=== PATIENT | female | born 1935 | race Caucasian/White ===

== ENCOUNTER 2021-03-27 08:14 | Emergency (ER) | payer MEDICARE, OTHER ==
[2021-03-27] MEDS ORDERED: Diltiazem 25 MG/5 ML SDV IVPUSH ONE ×2 (08:26→08:36)
[2021-03-27] MEDS ORDERED: Sodium Chloride 0.9% 10 ML Syringe FLUSH PRN ×2 (08:26→08:37)
--- NOTE | 2021-03-27 09:30 | EDM.PDOC ---
ED HPI GENERAL MEDICAL PROBLEM - General Stated Complaint: Palpitations Time Seen by Provider: 03/27/21 08:20 Source of Information: Reports: Patient History Limitations: Reports: No Limitations - History of Present Illness INITIAL COMMENTS - FREE TEXT/NARRATIVE: Patient presented to the ED because of palpitations which woke her up from her sleep at 0300. There is no dizziness, chest pain,m dyspnea, nausea or vomiting. She has a history of AFIB treated with coreg and anticoagulated with eliquis. ED ROS GENERAL - Review of Systems Review Of Systems: See Below Constitutional: Reports: No Symptoms HEENT: Reports: No Symptoms Respiratory: Reports: No Symptoms Cardiovascular: Reports: No Symptoms Endocrine: Reports: No Symptoms GI/Abdominal: Reports: No Symptoms : Reports: No Symptoms Musculoskeletal: Reports: No Symptoms Skin: Reports: No Symptoms Neurological: Reports: No Symptoms ED EXAM, GENERAL - Physical Exam Exam: See Below Exam Limited By: No Limitations General Appearance: Alert, No Apparent Distress Eye Exam: Bilateral Eye: PERRL Ears: Normal External Exam, Normal Canal Nose: Normal Inspection, Normal Mucosa, No Blood Throat/Mouth: Normal Inspection, Normal Lips, Normal Teeth, Normal Gums, Normal Oropharynx, Normal Voice Head: Atraumatic, Normocephalic Neck: Normal Inspection, Supple, Non-Tender Respiratory/Chest: No Respiratory Distress, Lungs Clear, Normal Breath Sounds, No Accessory Muscle Use, Chest Non-Tender Cardiovascular: Normal Peripheral Pulses, No Edema, No Gallop, No JVD, No Rub, Tachycardia GI/Abdominal: Normal Bowel Sounds, Soft, Non-Tender Back Exam: Normal Inspection, Full Range of Motion Extremities: Normal Inspection, Normal Range of Motion, Non-Tender, No Pedal Edema, Normal Capillary Refill Neurological: Alert, Oriented, CN II-XII Intact, Normal Cognition, Normal Gait #1 Interpretation EKG Date: 03/27/21 Time: 08:11 Rhythm: Other (junctional rhythm) Rate (Beats/Min): 126 [place]: Normal P-Wave: Present QRS: Normal ST-T: Normal QT: Normal Comparison: No Change EKG Interpretation Comments: Junctional Tachy Course - Vital Signs Text/Narrative:: Lab/EKG result was reviewed and discussed with patient Her HR was down to 69 and is asymptomatic prior to discharge - Orders/Labs/Meds Orders: Active Orders 24 hr Category Date Time Status EKG Documentation Completion [RC] ASDIRECTED Care 03/27/21 08:27 Active Sodium Chloride 0.9% [Saline Flush] Med 03/27/21 08:26 Active 10 ml FLUSH ASDIRECTED PRN Sodium Chloride 0.9% [Saline Flush] Med 03/27/21 08:37 Active 10 ml FLUSH ASDIRECTED PRN Saline Lock Insert [OM.PC] Routine Oth 03/27/21 08:26 Ordered Saline Lock Insert [OM.PC] Routine Oth 03/27/21 08:37 Ordered EKG 12 Lead [EK] Routine Ther 03/27/21 08:26 Ordered Medication Orders Sodium Chloride (Sodium Chloride 0.9% 10 Ml Syringe) 10 ml FLUSH ASDIRECTED PRN PRN Reason: Keep Vein Open Sodium Chloride (Sodium Chloride 0.9% 10 Ml Syringe) 10 ml FLUSH ASDIRECTED PRN PRN Reason: Keep Vein Open Labs: Laboratory Tests 03/27/21 03/27/21 03/27/21 Range/Units 08:50 08:50 08:50 WBC 6.6 (3.0-10.3) x10-3/uL RBC 5.19 (3.60-5.20) x10(6)uL Hgb 14.0 (11.4-15.5) g/dL Hct 44.3 (34.2-48.2) % MCV 85.4 (76.7-100.5) fL MCH 27.1 (23.9-33.9) pg MCHC 31.7 L (31.9-34.8) g/dL RDW 15.4 (12.3-16.5) % Plt Count 237 (151-488) x10(3)uL MPV 7.9 (7.1-12.4) fL Neut % (Auto) 72.7 (30.8-76.2) % Lymph % (Auto) 18.2 L (18.4-52.1) % [place] % (Auto) 6.0 (4.4-15.7) % Eos % (Auto) 2.2 (0.6-8.1) % Baso % (Auto) 0.9 (0.2-1.5) % Neut # (Auto) 4.8 (1.5-6.3) x10-3/uL Lymph # (Auto) 1.2 (1.0-4.4) x10-3/uL [place] # (Auto) 0.4 (0.3-1.0) x10-3/uL Eos # (Auto) 0.1 (0.0-0.8) x10-3/uL Baso # (Auto) 0.1 (0.0-0.1) x10-3/uL Sodium 145 (135-145) mmol/L Potassium 4.2 (3.5-5.3) mmol/L Chloride 107 (100-110) mmol/L Carbon Dioxide 30 (21-32) mmol/L BUN 12 (7-18) mg/dL Creatinine 0.9 (0.55-1.02) mg/dL Est Cr Clr Drug Dosing TNP Estimated GFR (MDRD) 59 L (>60) BUN/Creatinine Ratio 13.3 (9-20) Glucose 155 H (80-116) mg/dL Calcium 9.1 (8.6-10.2) mg/dL Total Bilirubin 0.8 (0.1-1.3) mg/dL AST 18 (5-25) IU/L ALT 21 (12-36) U/L Alkaline Phosphatase 142 H (56-112) IU/L Troponin I 14.2 (4.0-60.3) pg/mL Total Protein 6.3 (6.0-8.0) g/dL Albumin 3.4 (3.2-4.6) g/dL Globulin 2.9 g/dL Albumin/Globulin Ratio 1.2 Meds: Medications Generic Name Dose Route Start Last Admin Trade Name Freq PRN Reason Stop Dose Admin Sodium Chloride 10 ml 03/27/21 08:26 Sodium Chloride 0.9% 10 Ml Syringe FLUSH ASDIRECTED PRN Keep Vein Open Sodium Chloride 10 ml 03/27/21 08:37 Sodium Chloride 0.9% 10 Ml Syringe FLUSH ASDIRECTED PRN Keep Vein Open Discontinued Medications Generic Name Dose Route Start Last Admin Trade Name Freq PRN Reason Stop Dose Admin Diltiazem HCl 25 mg 03/27/21 08:26 Diltiazem 25 Mg/5 Ml Sdv IVPUSH 03/27/21 08:27 ONETIME ONE Diltiazem HCl 15 mg 03/27/21 08:36 Diltiazem 25 Mg/5 Ml Sdv IVPUSH 03/27/21 08:37 ONETIME ONE Departure - Departure Time of Disposition: 09:35 Disposition: Home, Self-Care 01 Condition: Good Clinical Impression: Palpitations Instructions: Palpitations, [id number], Atrial Fibrillation, [id number] Referrals: PCP,Not In Area [Primary Care Provider] - Additional Instructions: Please read discharge instructions on palpitations Continue you present medications Follow up as needed - My Orders Last 24 Hours: My Active Orders 03/27/21 08:26 Sodium Chloride 0.9% [Saline Flush] 10 ml FLUSH ASDIRECTED PRN Saline Lock Insert [OM.PC] Routine EKG 12 Lead [EK] Routine 03/27/21 08:27 EKG Documentation Completion [RC] ASDIRECTED 03/27/21 08:37 Sodium Chloride 0.9% [Saline Flush] 10 ml FLUSH ASDIRECTED PRN Saline Lock Insert [OM.PC] Routine - Assessment/Plan Last 24 Hours: My Active Orders 03/27/21 08:26 Sodium Chloride 0.9% [Saline Flush] 10 ml FLUSH ASDIRECTED PRN Saline Lock Insert [OM.PC] Routine EKG 12 Lead [EK] Routine 03/27/21 08:27 EKG Documentation Completion [RC] ASDIRECTED 03/27/21 08:37 Sodium Chloride 0.9% [Saline Flush] 10 ml FLUSH ASDIRECTED PRN Saline Lock Insert [OM.PC] Routine
== END 2021-03-27 09:58 | disposition home or self-care (01) ==
LOC: FB.ED 08:14
DX: R00.2 Palpitations (principal)
CPT/HCPCS: 36415; 80053; 84484; 85025; 93005; 99285-25

== ENCOUNTER 2021-05-12 09:25 | Emergency (ER) | payer MEDICARE, OTHER ==
[2021-05-12] MEDS ORDERED: Diltiazem 25 MG/5 ML SDV IVPUSH STA (10:00)
--- NOTE | 2021-05-12 10:38 | EDM.PDOC ---
ED HPI GENERAL MEDICAL PROBLEM - General Chief Complaint: Cardiovascular Problem Stated Complaint: ELAVATED HEART RATE Time Seen by Provider: 05/12/21 09:45 Source of Information: Reports: Patient History Limitations: Reports: No Limitations - History of Present Illness INITIAL COMMENTS - FREE TEXT/NARRATIVE: Patient presented to the ED because of palpitations for 3 days. There is no chest pain, dyspnea, dizziness. There is no N/V. She had a history of tachycardia and is taking coreg 6.25 twice daily. - Related Data Allergies Allergy/AdvReac Type Severity Reaction Status Date / Time No Known Allergies Allergy Verified 03/27/21 11:27 Home Meds: Home Meds Apixaban [Eliquis] 5 mg PO BID 03/27/21 [History] Furosemide [Lasix] 20 mg PO BID@08,12 03/27/21 [History] Gabapentin [Neurontin] 300 mg PO TID 03/27/21 [History] Iron Polysaccharide Complex [Iferex 150] 150 mg PO BIDMEALS 03/27/21 [History] Omeprazole 40 mg PO ACLUNCH 03/27/21 [History] Potassium Chloride 20 meq PO DAILY 03/27/21 [History] Sertraline [Zoloft] 100 mg PO QPM 03/27/21 [History] atorvaSTATin Calcium [Lipitor] 40 mg PO BEDTIME 03/27/21 [History] carvediloL [Coreg] 6.25 mg PO BIDMEALS 03/27/21 [History] Levothyroxine 75 mcg PO DAILY 05/12/21 [History] Past Medical History Cardiovascular History: Reports: Afib, Heart Failure Social & Family History - Family History Family Medical History: No Pertinent Family History - Tobacco Use Tobacco Use Status *Q: Never Tobacco User - Caffeine Use Caffeine Use: Reports: Soda - Recreational Drug Use Recreational Drug Use: No ED ROS GENERAL - Review of Systems Review Of Systems: See Below Constitutional: Reports: No Symptoms HEENT: Reports: No Symptoms Respiratory: Reports: No Symptoms Cardiovascular: Reports: Palpitations Endocrine: Reports: No Symptoms GI/Abdominal: Reports: No Symptoms : Reports: No Symptoms Musculoskeletal: Reports: No Symptoms Skin: Reports: No Symptoms Neurological: Reports: No Symptoms ED EXAM, GENERAL - Physical Exam Exam: See Below Exam Limited By: No Limitations General Appearance: Alert, No Apparent Distress Eye Exam: Bilateral Eye: PERRL Ears: Normal External Exam, Normal Canal, Normal TMs Nose: Normal Inspection, Normal Mucosa, No Blood Throat/Mouth: Normal Inspection, Normal Lips, Normal Teeth, Normal Gums, Normal Oropharynx, Normal Voice Head: Atraumatic, Normocephalic Neck: Normal Inspection, Supple, Non-Tender, Full Range of Motion Respiratory/Chest: No Respiratory Distress, Lungs Clear, Normal Breath Sounds, No Accessory Muscle Use, Chest Non-Tender Cardiovascular: Normal Peripheral Pulses, No Edema, No Gallop, No JVD, No Murmur, No Rub, Tachycardia GI/Abdominal: Normal Bowel Sounds, Soft, Non-Tender, No Organomegaly, No Distention, No Abnormal Bruit, No Mass Back Exam: Normal Inspection, Full Range of Motion Extremities: Normal Inspection, Normal Range of Motion, Non-Tender, No Pedal Edema, Normal Capillary Refill #1 Interpretation EKG Date: 05/12/21 Time: 09:33 Rhythm: Other (Junctional Tach) Rate (Beats/Min): 137 [place]: Normal P-Wave: Present QRS: Normal ST-T: Normal QT: Normal Comparison: No Change EKG Interpretation Comments: Junctional Tach Course - Vital Signs Text/Narrative:: Lab/EKG result was reviewed and discussed with patient Last Recorded V/S: Last Vital Signs Temp 36.4 C 05/12/21 09:26 Pulse 144 H 05/12/21 09:26 Resp 18 05/12/21 09:26 BP 147/101 H 05/12/21 09:26 Pulse Ox 95 05/12/21 09:26 - Orders/Labs/Meds Orders: Active Orders 24 hr Category Date Time Status EKG 12 Lead [EK] Routine Ther 05/12/21 10:00 Ordered Labs: Laboratory Tests 05/12/21 05/12/21 05/12/21 Range/Units 10:16 10:16 10:16 WBC 6.4 (3.0-10.3) x10-3/uL RBC 5.47 H (3.60-5.20) x10(6)uL Hgb 14.6 (11.4-15.5) g/dL Hct 45.1 (34.2-48.2) % MCV 82.4 (76.7-100.5) fL MCH 26.7 (23.9-33.9) pg MCHC 32.4 (31.9-34.8) g/dL RDW 15.6 (12.3-16.5) % Plt Count 191 (151-488) x10(3)uL MPV 8.1 (7.1-12.4) fL Neut % (Auto) 69.2 (30.8-76.2) % Lymph % (Auto) 22.5 (18.4-52.1) % [place] % (Auto) 5.8 (4.4-15.7) % Eos % (Auto) 1.8 (0.6-8.1) % Baso % (Auto) 0.7 (0.2-1.5) % Neut # (Auto) 4.4 (1.5-6.3) x10-3/uL Lymph # (Auto) 1.4 (1.0-4.4) x10-3/uL [place] # (Auto) 0.4 (0.3-1.0) x10-3/uL Eos # (Auto) 0.1 (0.0-0.8) x10-3/uL Baso # (Auto) 0.0 (0.0-0.1) x10-3/uL Sodium 142 (135-145) mmol/L Potassium 4.0 (3.5-5.3) mmol/L Chloride 105 (100-110) mmol/L Carbon Dioxide 28 (21-32) mmol/L BUN 12 (7-18) mg/dL Creatinine 1.0 (0.55-1.02) mg/dL Est Cr Clr Drug Dosing 30.47 mL/min Estimated GFR (MDRD) 53 L (>60) BUN/Creatinine Ratio 12.0 (9-20) Glucose 141 H (80-116) mg/dL Calcium 8.7 (8.6-10.2) mg/dL Total Bilirubin 0.7 (0.1-1.3) mg/dL AST 30 H D (5-25) IU/L ALT 27 D (12-36) U/L Alkaline Phosphatase 134 H (56-112) IU/L Troponin I 10.0 (4.0-60.3) pg/mL Total Protein 6.6 (6.0-8.0) g/dL Albumin 3.7 (3.2-4.6) g/dL Globulin 2.9 g/dL Albumin/Globulin Ratio 1.3 Meds: Medications Discontinued Medications Generic Name Dose Route Start Last Admin Trade Name Tim PRN Reason Stop Dose Admin Diltiazem HCl 15 mg 05/12/21 10:00 Diltiazem 25 Mg/5 Ml Sdv IVPUSH 05/12/21 10:01 NOW STA Departure - Departure Time of Disposition: 10:50 Disposition: Home, Self-Care 01 Condition: Good Clinical Impression: Palpitations Instructions: Palpitations, [id number] Referrals: PCP,None [Ordering Only Provider] - Forms: ED Department Discharge Additional Instructions: Please read discharge instructions on palpitations Take an extra dose of coreg/carvedilol if your hear rate is more than 100beats/min Keep your appointment to see your doctor today Sepsis Event Note (ED) - Evaluation Sepsis Screening Result: No Definite Risk - Focused Exam Vital Signs: Vital Signs Temp Pulse Resp BP Pulse Ox 05/12/21 09:26 36.4 C 144 H 18 147/101 H 95 - My Orders Last 24 Hours: My Active Orders 05/12/21 10:00 EKG 12 Lead [EK] Routine - Assessment/Plan Last 24 Hours: My Active Orders 05/12/21 10:00 EKG 12 Lead [EK] Routine
== END 2021-05-12 11:03 | disposition home or self-care (01) ==
LOC: FB.ED 09:25
DX: R00.2 Palpitations (principal); R00.0 Tachycardia, unspecified; I48.91 Unspecified atrial fibrillation; I50.9 Heart failure, unspecified; Z79.01 Long term (current) use of anticoagulants; Z79.899 Other long term (current) drug therapy
CPT/HCPCS: 36415; 80053; 84484; 85025; 93005; 99285-25

== ENCOUNTER 2022-01-06 12:52 | Emergency (ER) | payer MEDICARE, OTHER ==
[2022-01-06 13:18] LABS: ESTIMATED GFR 55 mL/min (>60)
[2022-01-06] MEDS ORDERED: Sodium Chloride 0.9% 10 ML Syringe FLUSH PRN (14:05)
[2022-01-06] MEDS ORDERED: Nitroglycerin 0.4 MG Tab.SL SL ONE ×2 (14:05→14:27)
== END 2022-01-06 14:50 | disposition home or self-care (01) ==
LOC: FB.ED 12:52
DX: R07.9 Chest pain, unspecified (principal); I11.0 Hypertensive heart disease with heart failure; I50.9 Heart failure, unspecified; E66.9 Obesity, unspecified; Z68.32 Body mass index [BMI] 32.0-32.9, adult; Z91.013 Allergy to seafood; Z79.899 Other long term (current) drug therapy; Z79.01 Long term (current) use of anticoagulants; Z90.710 Acquired absence of both cervix and uterus
CPT/HCPCS: 36415; 80053; 83880; 84484; 85025; 93005; 99285; A9270

== ENCOUNTER 2022-03-22 18:15 | Emergency (ER) | payer MEDICARE, OTHER | END 2022-03-22 20:49 | disposition home or self-care (01) | LOC: FB.ED 18:15 | DX: R42 Dizziness and giddiness (principal); I11.0 Hypertensive heart disease with heart failure; I50.9 Heart failure, unspecified; R26.81 Unsteadiness on feet; E03.9 Hypothyroidism, unspecified; E66.9 Obesity, unspecified; Z68.33 Body mass index [BMI] 33.0-33.9, adult; Z91.013 Allergy to seafood; Z79.01 Long term (current) use of anticoagulants; Z90.710 Acquired absence of both cervix and uterus; Z79.899 Other long term (current) drug therapy; W01.10XA Fall on same level from slipping, tripping and stumbling with subsequent striking against unspecified object, initial encounter | CPT/HCPCS: 70450; 81001; 99284 ==

== ENCOUNTER 2022-07-07 15:28 | Emergency (ER) | payer MEDICARE, OTHER | END 2022-07-07 16:22 | disposition home or self-care (01) | LOC: FB.ED 15:28 | DX: N39.0 Urinary tract infection, site not specified (principal); I11.0 Hypertensive heart disease with heart failure; I50.9 Heart failure, unspecified; E78.00 Pure hypercholesterolemia, unspecified; E66.9 Obesity, unspecified; Z68.34 Body mass index [BMI] 34.0-34.9, adult; Z91.013 Allergy to seafood; Z79.01 Long term (current) use of anticoagulants; Z79.899 Other long term (current) drug therapy | CPT/HCPCS: 81001; 87086; 87088; 87186; 99283 ==

== ENCOUNTER 2022-07-24 15:52 | Emergency (ER) | payer MEDICARE, OTHER, MEDICAID ==
[2022-07-24] MEDS ORDERED: Sodium Chloride 0.9% 10 ML Syringe FLUSH PRN (16:26)
[2022-07-24] MEDS ORDERED: Ertapenem 1 GM in Sodium Chloride 0.9% 50 ML IV SCH (16:45)
[2022-07-24 16:57] LABS: ESTIMATED GFR 55 mL/min (>60)
[2022-07-24] MEDS ORDERED: Phenazopyridine 95 MG Tab PO STA ×2 (17:23→17:39)
== END 2022-07-24 18:00 | disposition home or self-care (01) ==
LOC: FB.ED 15:52
DX: N39.0 Urinary tract infection, site not specified (principal); K21.9 Gastro-esophageal reflux disease without esophagitis; I11.0 Hypertensive heart disease with heart failure; I50.9 Heart failure, unspecified; E78.00 Pure hypercholesterolemia, unspecified; E03.9 Hypothyroidism, unspecified; E66.9 Obesity, unspecified; Z68.30 Body mass index [BMI] 30.0-30.9, adult; Z91.013 Allergy to seafood; Z88.1 Allergy status to other antibiotic agents; Z79.01 Long term (current) use of anticoagulants; Z79.899 Other long term (current) drug therapy
CPT/HCPCS: 36415; 80053; 83605; 85025; 86140; 87040; 96365; 99283; 99283-25; A9270-GY; J1335; J3490

== ENCOUNTER 2022-10-27 15:10 | Inpatient (IN) | payer MEDICARE, OTHER ==
[2022-10-27] MEDS ORDERED: cefTRIAXone 2 GM Vial IVPUSH ONE (16:59)
[2022-10-27 17:17] LABS: BASOPHILS PERCENT AUTO 0.5 % (0.2-1.5); EOSINOPHILS ABSOLUTE AUTO 0.1 x10-3/uL (0.0-0.8); EOSINOPHILS PERCENT AUTO 1.8 % (0.6-8.1); HEMATOCRIT 39.1 % (34.2-48.2); HEMOGLOBIN 12.5 g/dL (11.4-15.5); LYMPHOCYTES ABSOLUTE AUTO 1.7 x10-3/uL (1.0-4.4); LYMPHOCYTES PERCENT AUTO 27.8 % (18.4-52.1); MEAN CORPUSCULAR HEMOGLOBIN 26.2 pg (23.9-33.9); MEAN CORPUSCULAR VOLUME 81.9 fL (76.7-100.5); MEAN PLATELET VOLUME 8.3 fL (7.1-12.4); MONOCYTES ABSOLUTE AUTO 0.5 x10-3/uL (0.3-1.0); MONOCYTES PERCENT AUTO 7.6 % (4.4-15.7); NEUTROPHILS ABSOLUTE AUTO 3.9 x10-3/uL (1.5-6.3); NEUTROPHILS PERCENT AUTO 62.3 % (30.8-76.2); PLATELET COUNT,PLT 196 x10(3)uL (151-488); RED BLOOD CELL COUNT 4.77 x10(6)uL (3.60-5.20); RED CELL DISTRIBUTION WIDTH 15.6 % (12.3-16.5); WHITE BLOOD CELL COUNT,WBC 6.2 x10-3/uL (3.0-10.3)
[2022-10-27 17:24] LABS: BLOOD UREA NITROGEN,BUN 19 mg/dL (7-18); BUN/CREATININE RATIO 21.1 (9-20); CALCIUM 9.7 mg/dL (8.6-10.2); CARBON DIOXIDE,CO2 30 mmol/L (21-32); CHLORIDE,CL 104 mmol/L (100-110); CREATININE 0.9 mg/dL (0.55-1.02); EST CRCL DRUG DOSING (CG) 31.63 mL/min; ESTIMATED GFR 62 mL/min (>60); GLUCOSE RANDOM 102 mg/dL (80-116); SODIUM,NA 142 mmol/L (135-145)
[2022-10-27 17:26] LABS: A/G RATIO 1.2; ALANINE AMINOTRANSFERASE,ALT 24 U/L (12-36); ALBUMIN 3.8 g/dL (3.2-4.6); ALKALINE PHOSPHATASE 111 IU/L (56-112); ASPARTATE AMNIOTRANSFERASE,AST 22 IU/L (5-25); BILIRUBIN TOTAL 0.6 mg/dL (0.1-1.3); PROTEIN TOTAL,TP 6.9 g/dL (6.0-8.0)
[2022-10-27] MEDS: Sodium Chloride 0.9% 10 ML Syringe FLUSH PRN ×4 (17:29→18:43)
[2022-10-27 17:30] LABS: LACTIC ACID 0.7 mmol/L (0.4-2.0)
[2022-10-27] MEDS: Azithromycin 500 MG in Sodium Chloride 0.9% 250 ML IV SCH (17:35)
[2022-10-27] MEDS ORDERED: Magnesium Hydroxide 400 MG/5 ML Susp 30 ML Cup PO PRN (18:29)
[2022-10-27] MEDS ORDERED: Loperamide 2 MG Cap PO PRN (18:29)
[2022-10-27] MEDS ORDERED: Nitroglycerin 0.4 MG Tab.SL SL PRN (18:29)
[2022-10-27] MEDS ORDERED: Acetaminophen 500 MG Tab PO PRN ×2 (18:29)
[2022-10-27] MEDS ORDERED: LORazepam 0.5 MG Tab PO PRN (18:29)
[2022-10-27] MEDS ORDERED: guaiFENesin 100 MG/5 ML Soln 5 ML UD Cup PO PRN (18:29)
[2022-10-27] MEDS ORDERED: LANOLIN TOP PRN (18:29)
[2022-10-27] MEDS: atorvaSTATin 40 MG Tab PO SCH (20:15)
[2022-10-27] MEDS: Codeine/guaiFENesin 10-100 MG/5 ML Syrup 5 ML Cup PO PRN (20:15)
[2022-10-27] MEDS: Donepezil 10 MG Tab PO SCH (20:15)
[2022-10-27] MEDS: Benzonatate 100 MG Cap PO PRN (20:15)
[2022-10-27] MEDS ORDERED: Gabapentin 300 MG Cap ONE (20:33)
[2022-10-27] MEDS: Azelastine Nasal Soln 30 ML Spray Bottle NASBOTH SCH (21:12)
[2022-10-27] MEDS: Gabapentin 300 MG Cap PO SCH (21:14)
[2022-10-27] MEDS: Sertraline 100 MG Tab PO SCH (21:14)
[2022-10-28] MEDS: Codeine/guaiFENesin 10-100 MG/5 ML Syrup 5 ML Cup PO PRN (03:49)
[2022-10-28] MEDS: Levothyroxine 75 MCG Tab PO SCH (06:13)
[2022-10-28 07:02] LABS: BASOPHILS PERCENT AUTO 0.4 % (0.2-1.5); EOSINOPHILS ABSOLUTE AUTO 0.1 x10-3/uL (0.0-0.8); EOSINOPHILS PERCENT AUTO 1.5 % (0.6-8.1); HEMOGLOBIN 12.2 g/dL (11.4-15.5); LYMPHOCYTES ABSOLUTE AUTO 1.6 x10-3/uL (1.0-4.4); LYMPHOCYTES PERCENT AUTO 25.1 % (18.4-52.1); MEAN CORPUSCULAR HEMOGLOBIN 26.8 pg (23.9-33.9); MEAN CORPUSCULAR VOLUME 81.2 fL (76.7-100.5); MEAN PLATELET VOLUME 8.3 fL (7.1-12.4); MONOCYTES ABSOLUTE AUTO 0.5 x10-3/uL (0.3-1.0); MONOCYTES PERCENT AUTO 7.7 % (4.4-15.7); NEUTROPHILS ABSOLUTE AUTO 4.2 x10-3/uL (1.5-6.3); NEUTROPHILS PERCENT AUTO 65.3 % (30.8-76.2); PLATELET COUNT,PLT 194 x10(3)uL (151-488); RED BLOOD CELL COUNT 4.56 x10(6)uL (3.60-5.20); RED CELL DISTRIBUTION WIDTH 15.8 % (12.3-16.5); WHITE BLOOD CELL COUNT,WBC 6.4 x10-3/uL (3.0-10.3)
[2022-10-28 07:11] LABS: BLOOD UREA NITROGEN,BUN 14 mg/dL (7-18); BUN/CREATININE RATIO 15.6 (9-20); CALCIUM 9.2 mg/dL (8.6-10.2); CARBON DIOXIDE,CO2 29 mmol/L (21-32); CHLORIDE,CL 105 mmol/L (100-110); CREATININE 0.9 mg/dL (0.55-1.02); EST CRCL DRUG DOSING (CG) 31.63 mL/min; ESTIMATED GFR 62 mL/min (>60); GLUCOSE RANDOM 98 mg/dL (80-116); POTASSIUM,K 4.1 mmol/L (3.5-5.3); SODIUM,NA 142 mmol/L (135-145)
[2022-10-28] MEDS ORDERED: Aluminum Hydroxide/Magnesium Hydroxide Susp 30 ML Cup PO PRN (07:38)
[2022-10-28] MEDS: Azelastine Nasal Soln 30 ML Spray Bottle NASBOTH SCH ×2 (08:24→21:21)
[2022-10-28] MEDS: Gabapentin 300 MG Cap PO SCH ×3 (08:24→20:59)
[2022-10-28] MEDS: Benzonatate 100 MG Cap PO PRN ×2 (08:24→13:11)
[2022-10-28] MEDS: Diltiazem 120 MG Cap.CD PO SCH (08:39)
[2022-10-28] MEDS: Fluticasone NASAL Spray 16 GM Bottle NASBOTH SCH (08:40)
[2022-10-28] MEDS: Biotin 5 MG Cap PO SCH (08:40)
[2022-10-28] MEDS: Iron Polysaccharides Complex 150 MG Cap PO SCH ×2 (08:40→17:45)
[2022-10-28] MEDS: Carvedilol 6.25 MG Tab PO SCH ×2 (08:40→17:52)
[2022-10-28] MEDS: Furosemide 20 MG Tab PO SCH ×2 (08:40→12:29)
[2022-10-28] MEDS ORDERED: Lactobacillus Rhamnosus GG (Probiotic) Cap PO SCH (10:00)
[2022-10-28] MEDS: Multivitamins with Iron/Calcium/Folic Acid/Minerals Tab PO SCH (10:22)
[2022-10-28] MEDS: Saccharomyces Boulardii (Probiotic) 250 MG Cap PO SCH (10:23)
[2022-10-28] MEDS ORDERED: Pantoprazole 40 MG Tab.CR PO SCH (12:00)
[2022-10-28] MEDS ORDERED: Cholecalciferol (Vitamin D3) 25 MCG Tab PO SCH (12:00)
[2022-10-28] MEDS ORDERED: Potassium Chloride 20 MEQ Tab.ER PO SCH (12:00)
[2022-10-28] MEDS ORDERED: cefTRIAXone 1 GM Vial IVPUSH SCH (17:00)
[2022-10-28] MEDS: Azithromycin 500 MG in Sodium Chloride 0.9% 250 ML IV SCH (17:03)
[2022-10-28] MEDS: Sodium Chloride 0.9% 10 ML Syringe FLUSH PRN ×2 (17:03→18:35)
[2022-10-28] MEDS ORDERED: Rivaroxaban 15 MG Tab PO SCH (18:00)
[2022-10-28] MEDS ORDERED: Cetirizine 10 MG Tab PO SCH (21:00)
[2022-10-28] MEDS: Donepezil 10 MG Tab PO SCH (21:19)
[2022-10-28] MEDS: atorvaSTATin 40 MG Tab PO SCH (21:22)
[2022-10-28] MEDS: Sertraline 100 MG Tab PO SCH (21:23)
[2022-10-29] MEDS: Levothyroxine 75 MCG Tab PO SCH (05:59)
[2022-10-29 06:46] LABS: BASOPHILS PERCENT AUTO 0.3 % (0.2-1.5); EOSINOPHILS ABSOLUTE AUTO 0.1 x10-3/uL (0.0-0.8); EOSINOPHILS PERCENT AUTO 1.8 % (0.6-8.1); HEMATOCRIT 38.3 % (34.2-48.2); HEMOGLOBIN 12.4 g/dL (11.4-15.5); LYMPHOCYTES ABSOLUTE AUTO 1.7 x10-3/uL (1.0-4.4); LYMPHOCYTES PERCENT AUTO 26.2 % (18.4-52.1); MEAN CORPUSCULAR HEMOGLOBIN 26.4 pg (23.9-33.9); MEAN CORPUSCULAR HGB CONC 32.3 g/dL (31.9-34.8); MEAN CORPUSCULAR VOLUME 81.5 fL (76.7-100.5); MEAN PLATELET VOLUME 8.3 fL (7.1-12.4); MONOCYTES ABSOLUTE AUTO 0.5 x10-3/uL (0.3-1.0); MONOCYTES PERCENT AUTO 7.5 % (4.4-15.7); NEUTROPHILS PERCENT AUTO 64.2 % (30.8-76.2); PLATELET COUNT,PLT 207 x10(3)uL (151-488); RED CELL DISTRIBUTION WIDTH 15.2 % (12.3-16.5); WHITE BLOOD CELL COUNT,WBC 6.3 x10-3/uL (3.0-10.3)
[2022-10-29 06:49] LABS: BLOOD UREA NITROGEN,BUN 14 mg/dL (7-18); BUN/CREATININE RATIO 17.5 (9-20); CALCIUM 9.3 mg/dL (8.6-10.2); CARBON DIOXIDE,CO2 28 mmol/L (21-32); CHLORIDE,CL 105 mmol/L (100-110); CREATININE 0.8 mg/dL (0.55-1.02); EST CRCL DRUG DOSING (CG) 35.59 mL/min; ESTIMATED GFR 71 mL/min (>60); GLUCOSE RANDOM 103 mg/dL (80-116); POTASSIUM,K 3.9 mmol/L (3.5-5.3); SODIUM,NA 143 mmol/L (135-145)
[2022-10-29] MEDS: Carvedilol 6.25 MG Tab PO SCH (08:34)
[2022-10-29] MEDS: Iron Polysaccharides Complex 150 MG Cap PO SCH (08:34)
[2022-10-29] MEDS: Diltiazem 120 MG Cap.CD PO SCH (08:35)
[2022-10-29] MEDS: Fluticasone NASAL Spray 16 GM Bottle NASBOTH SCH (08:35)
[2022-10-29] MEDS: Furosemide 20 MG Tab PO SCH (08:35)
[2022-10-29] MEDS: Azelastine Nasal Soln 30 ML Spray Bottle NASBOTH SCH (08:35)
[2022-10-29] MEDS: Biotin 5 MG Cap PO SCH (08:36)
[2022-10-29] MEDS: Multivitamins with Iron/Calcium/Folic Acid/Minerals Tab PO SCH (08:36)
[2022-10-29] MEDS: Saccharomyces Boulardii (Probiotic) 250 MG Cap PO SCH (08:36)
[2022-10-29] MEDS: Gabapentin 300 MG Cap PO SCH (08:41)
== END 2022-10-29 10:15 | disposition home health service (06) | DRG 194 ==
LOC: FB.MS 15:10
PROVIDERS: ADMIT Student in an Organized Health Care Education/Training Program; ATTEND Family Medicine
DX: J18.9 Pneumonia, unspecified organism (principal); I50.32 Chronic diastolic (congestive) heart failure; J20.9 Acute bronchitis, unspecified; F32.A Depression, unspecified; F41.9 Anxiety disorder, unspecified; I48.91 Unspecified atrial fibrillation; E03.9 Hypothyroidism, unspecified; Z66 Do not resuscitate; Z20.822 Contact with and (suspected) exposure to COVID-19; K21.9 Gastro-esophageal reflux disease without esophagitis; H54.7 Unspecified visual loss; I11.0 Hypertensive heart disease with heart failure; D64.9 Anemia, unspecified; E78.00 Pure hypercholesterolemia, unspecified; Z96.653 Presence of artificial knee joint, bilateral; I48.0 Paroxysmal atrial fibrillation; E78.5 Hyperlipidemia, unspecified; Z91.013 Allergy to seafood; Z88.2 Allergy status to sulfonamides; Z79.899 Other long term (current) drug therapy; Z79.890 Hormone replacement therapy; Z86.73 Personal history of transient ischemic attack (TIA), and cerebral infarction without residual deficits; Z90.710 Acquired absence of both cervix and uterus; Z51.5 Encounter for palliative care
CPT/HCPCS: 36415; 71046; 80048; 80053; 83605; 83735; 85025; 86140; 87040; 94150; A9270-GY; J0456; J0696; J3490; J7050; U0002

== ENCOUNTER 2022-12-01 10:32 | Emergency (ER) | payer OTHER, MEDICAID ==
[2022-12-01 11:15] LABS: BASOPHILS PERCENT AUTO 0.5 % (0.2-1.5); EOSINOPHILS ABSOLUTE AUTO 0.1 x10-3/uL (0.0-0.8); EOSINOPHILS PERCENT AUTO 1.3 % (0.6-8.1); HEMATOCRIT 41.4 % (34.2-48.2); HEMOGLOBIN 13.6 g/dL (11.4-15.5); LYMPHOCYTES ABSOLUTE AUTO 1.6 x10-3/uL (1.0-4.4); LYMPHOCYTES PERCENT AUTO 30.3 % (18.4-52.1); MEAN CORPUSCULAR HEMOGLOBIN 26.8 pg (23.9-33.9); MEAN CORPUSCULAR HGB CONC 32.9 g/dL (31.9-34.8); MEAN CORPUSCULAR VOLUME 81.4 fL (76.7-100.5); MEAN PLATELET VOLUME 8.2 fL (7.1-12.4); MONOCYTES ABSOLUTE AUTO 0.4 x10-3/uL (0.3-1.0); MONOCYTES PERCENT AUTO 7.2 % (4.4-15.7); NEUTROPHILS ABSOLUTE AUTO 3.3 x10-3/uL (1.5-6.3); NEUTROPHILS PERCENT AUTO 60.7 % (30.8-76.2); PLATELET COUNT,PLT 216 x10(3)uL (151-488); RED BLOOD CELL COUNT 5.08 x10(6)uL (3.60-5.20); RED CELL DISTRIBUTION WIDTH 19.1 % (12.3-16.5); WHITE BLOOD CELL COUNT,WBC 5.4 x10-3/uL (3.0-10.3)
[2022-12-01 11:19] LABS: BLOOD UREA NITROGEN,BUN 15 mg/dL (7-18); BUN/CREATININE RATIO 18.8 (9-20); CALCIUM 9.2 mg/dL (8.6-10.2); CARBON DIOXIDE,CO2 30 mmol/L (21-32); CHLORIDE,CL 104 mmol/L (100-110); CREATININE 0.8 mg/dL (0.55-1.02); ESTIMATED GFR 71 mL/min (>60); GLUCOSE RANDOM 128 mg/dL (80-116); POTASSIUM,K 3.8 mmol/L (3.5-5.3); SODIUM,NA 142 mmol/L (135-145)
[2022-12-01] MEDS ORDERED: Aspirin 81 MG Tab.Chew PO ONE (11:24)
[2022-12-01] MEDS ORDERED: Nitroglycerin 0.4 MG Tab.SL SL PRN (11:24)
[2022-12-01 11:25] LABS: A/G RATIO 1.4; ALANINE AMINOTRANSFERASE,ALT 26 U/L (12-36); ALBUMIN 3.9 g/dL (3.2-4.6); ALKALINE PHOSPHATASE 89 IU/L (56-112); ASPARTATE AMNIOTRANSFERASE,AST 22 IU/L (5-25); BILIRUBIN TOTAL 0.6 mg/dL (0.1-1.3); PROTEIN TOTAL,TP 6.6 g/dL (6.0-8.0)
[2022-12-01 11:26] LABS: TROPONIN I 7.5 pg/mL (4.0-60.3)
[2022-12-01] MEDS ORDERED: Sodium Chloride 0.9% 10 ML Syringe FLUSH PRN (11:26)
[2022-12-01 11:30] LABS: C-REACTIVE PROTEIN < 0.2 mg/dL (0.5-0.9)
[2022-12-01 13:27] LABS: BILIRUBIN,URINE NEGATIVE (NEGATIVE); GLUCOSE,URINE NORMAL (NORMAL); KETONES,URINE NEGATIVE (NEGATIVE); LEUKOCYTE ESTERASE,URINE NEGATIVE (NEGATIVE); NITRITE,URINE NEGATIVE (NEGATIVE); OCCULT BLOOD,URINE NEGATIVE (NEGATIVE); PROTEIN,URINE NEGATIVE (NEGATIVE); UROBILINOGEN,URINE NORMAL (NEGATIVE)
[2022-12-01 13:32] LABS: APPEARANCE,URINE CLEAR (CLEAR); COLOR,URINE YELLOW (YELLOW)
[2022-12-01 13:33] LABS: BACTERIA,URINE RARE (NS); RBC,URINE 0-5 (0-5); SQUAMOUS EPITHELIAL CELLS,UR FEW (NS,R,O); WBC,URINE 0-5 (0-5)
== END 2022-12-01 15:00 | disposition home or self-care (01) ==
LOC: FB.ED 10:32
DX: I48.0 Paroxysmal atrial fibrillation (principal); I11.0 Hypertensive heart disease with heart failure; I50.9 Heart failure, unspecified; E78.00 Pure hypercholesterolemia, unspecified; K21.9 Gastro-esophageal reflux disease without esophagitis; M19.90 Unspecified osteoarthritis, unspecified site; E03.9 Hypothyroidism, unspecified; E66.9 Obesity, unspecified; Z91.013 Allergy to seafood; Z88.2 Allergy status to sulfonamides; Z79.899 Other long term (current) drug therapy; Z79.01 Long term (current) use of anticoagulants
CPT/HCPCS: 36415; 71046; 80053; 81001; 83735; 83880; 84484; 85025; 86140; 93005; 99285; A9270-GY; J3490

== ENCOUNTER 2023-07-17 07:46 | Emergency (ER) | payer MEDICARE, OTHER ==
[2023-07-17] MEDS ORDERED: Alum Hydroxide/Mag Hydroxide 15 ML, Lidocaine 2% 15 ML PO ONE ×2 (07:51)
[2023-07-17 08:10] LABS: BASOPHILS PERCENT AUTO 0.5 % (0.2-1.5); EOSINOPHILS ABSOLUTE AUTO 0.1 x10-3/uL (0.0-0.8); HEMATOCRIT 39.6 % (34.2-48.2); LYMPHOCYTES ABSOLUTE AUTO 1.7 x10-3/uL (1.0-4.4); MEAN CORPUSCULAR HEMOGLOBIN 27.6 pg (23.9-33.9); MEAN CORPUSCULAR HGB CONC 32.8 g/dL (31.9-34.8); MEAN CORPUSCULAR VOLUME 84.3 fL (76.7-100.5); MEAN PLATELET VOLUME 8.2 fL (7.1-12.4); MONOCYTES ABSOLUTE AUTO 0.4 x10-3/uL (0.3-1.0); MONOCYTES PERCENT AUTO 7.9 % (4.4-15.7); NEUTROPHILS ABSOLUTE AUTO 2.7 x10-3/uL (1.5-6.3); NEUTROPHILS PERCENT AUTO 54.6 % (30.8-76.2); PLATELET COUNT,PLT 179 x10(3)uL (151-488); RED BLOOD CELL COUNT 4.69 x10(6)uL (3.60-5.20); WHITE BLOOD CELL COUNT,WBC 4.9 x10-3/uL (3.0-10.3)
[2023-07-17 08:11] LABS: BLOOD UREA NITROGEN,BUN 18 mg/dL (7-18); CARBON DIOXIDE,CO2 30 mmol/L (21-32); CHLORIDE,CL 103 mmol/L (100-110); CREATININE 0.9 mg/dL (0.55-1.02); EST CRCL DRUG DOSING (CG) 31.04 mL/min; ESTIMATED GFR 61 mL/min (>60); GLUCOSE RANDOM 107 mg/dL (80-116); SODIUM,NA 141 mmol/L (135-145)
[2023-07-17] MEDS ORDERED: Nitroglycerin 0.4 MG Tab.SL SL ONE (08:16)
[2023-07-17 08:17] LABS: A/G RATIO 1.3; ALANINE AMINOTRANSFERASE,ALT 22 U/L (12-36); ALBUMIN 3.4 g/dL (3.2-4.6); ALKALINE PHOSPHATASE 90 IU/L (56-112); ASPARTATE AMNIOTRANSFERASE,AST 18 IU/L (5-25); BILIRUBIN TOTAL 0.5 mg/dL (0.1-1.3); PROTEIN TOTAL,TP 6.1 g/dL (6.0-8.0)
[2023-07-17 08:24] LABS: C-REACTIVE PROTEIN < 0.50 mg/dL (<0.50); PRO B-TYPE NATRIUR PEPT,BNPPRO 186 pg/mL (<=450); TROPONIN I 9.3 pg/mL (4.0-60.3)
[2023-07-17 08:40] LABS: INFLUENZA A NAA NEGATIVE (NEGATIVE); INFLUENZA B NAA NEGATIVE (NEGATIVE); RESPIRATORY SYNCYTIAL VIR NAA NEGATIVE (NEGATIVE)
[2023-07-17 08:42] LABS: BILIRUBIN,URINE NEGATIVE (NEGATIVE); GLUCOSE,URINE NORMAL (NORMAL); KETONES,URINE NEGATIVE (NEGATIVE); LEUKOCYTE ESTERASE,URINE NEGATIVE (NEGATIVE); NITRITE,URINE NEGATIVE (NEGATIVE); OCCULT BLOOD,URINE NEGATIVE (NEGATIVE); PROTEIN,URINE NEGATIVE (NEGATIVE); UROBILINOGEN,URINE NORMAL (NEGATIVE)
[2023-07-17 08:47] LABS: APPEARANCE,URINE CLEAR (CLEAR); BACTERIA,URINE FEW (NS); COLOR,URINE YELLOW (YELLOW); SQUAMOUS EPITHELIAL CELLS,UR FEW (NS,R,O); WBC,URINE 0-5 (0-5)
[2023-07-17 08:47] LABS: CORONAVIRUS COVID-19 NAA NEGATIVE (NEGATIVE)
== END 2023-07-17 09:50 | disposition home or self-care (01) ==
LOC: FB.ED 07:46
DX: K21.00 Gastro-esophageal reflux disease with esophagitis, without bleeding (principal); I11.0 Hypertensive heart disease with heart failure; I50.9 Heart failure, unspecified; E78.00 Pure hypercholesterolemia, unspecified; E03.9 Hypothyroidism, unspecified; E66.9 Obesity, unspecified; Z68.36 Body mass index [BMI] 36.0-36.9, adult; Z88.2 Allergy status to sulfonamides; Z91.013 Allergy to seafood; Z79.899 Other long term (current) drug therapy
CPT/HCPCS: 0241U; 71045; 80053; 81001; 83880; 84484; 85025; 86140; 93005; 99285; A9270; 93010; 99283

== ENCOUNTER 2023-08-09 15:16 | Emergency (ER) | payer MEDICARE, OTHER ==
[2023-08-09] MEDS ORDERED: Sodium Chloride 0.9% 10 ML Syringe FLUSH PRN (15:23)
[2023-08-09 15:35] LABS: BASOPHILS PERCENT AUTO 0.4 % (0.2-1.5); EOSINOPHILS ABSOLUTE AUTO 0.1 x10-3/uL (0.0-0.8); EOSINOPHILS PERCENT AUTO 1.6 % (0.6-8.1); HEMATOCRIT 41.4 % (34.2-48.2); HEMOGLOBIN 13.7 g/dL (11.4-15.5); LYMPHOCYTES ABSOLUTE AUTO 1.5 x10-3/uL (1.0-4.4); LYMPHOCYTES PERCENT AUTO 23.5 % (18.4-52.1); MEAN CORPUSCULAR VOLUME 84.8 fL (76.7-100.5); MEAN PLATELET VOLUME 8.2 fL (7.1-12.4); MONOCYTES ABSOLUTE AUTO 0.6 x10-3/uL (0.3-1.0); NEUTROPHILS ABSOLUTE AUTO 4.2 x10-3/uL (1.5-6.3); NEUTROPHILS PERCENT AUTO 65.5 % (30.8-76.2); PLATELET COUNT,PLT 178 x10(3)uL (151-488); RED BLOOD CELL COUNT 4.88 x10(6)uL (3.60-5.20); RED CELL DISTRIBUTION WIDTH 16.1 % (12.3-16.5); WHITE BLOOD CELL COUNT,WBC 6.4 x10-3/uL (3.0-10.3)
[2023-08-09 15:51] LABS: A/G RATIO 1.4; ALANINE AMINOTRANSFERASE,ALT 23 U/L (12-36); ALBUMIN 3.8 g/dL (3.2-4.6); ALKALINE PHOSPHATASE 93 IU/L (56-112); ASPARTATE AMNIOTRANSFERASE,AST 18 IU/L (5-25); BILIRUBIN TOTAL 0.6 mg/dL (0.1-1.3); BLOOD UREA NITROGEN,BUN 18 mg/dL (7-18); CALCIUM 8.9 mg/dL (8.6-10.2); CARBON DIOXIDE,CO2 32 mmol/L (21-32); CHLORIDE,CL 104 mmol/L (100-110); ESTIMATED GFR 54 mL/min (>60); GLUCOSE RANDOM 98 mg/dL (80-116); POTASSIUM,K 4.1 mmol/L (3.5-5.3); PROTEIN TOTAL,TP 6.5 g/dL (6.0-8.0); SODIUM,NA 142 mmol/L (135-145)
[2023-08-09 15:58] LABS: TROPONIN I 8.7 pg/mL (4.0-60.3)
[2023-08-09 16:25] LABS: D-DIMER QUANTITATIVE 0.61 mg/LFEU (0.0-0.59)
[2023-08-09 16:30] LABS: PTT,PARTIAL THROMBOPLSTIN TIME 25.6 SECONDS (24.4-33.2)
[2023-08-09 16:36] LABS: INR 1.04 (1.00-1.24); PROTHROMBIN TIME 10.8 sec (9.0-11.1)
== END 2023-08-09 19:31 ==
LOC: FB.ED 15:16
DX: K21.9 Gastro-esophageal reflux disease without esophagitis (principal); I11.0 Hypertensive heart disease with heart failure; I50.9 Heart failure, unspecified; I48.91 Unspecified atrial fibrillation; E78.00 Pure hypercholesterolemia, unspecified; E03.9 Hypothyroidism, unspecified; Z91.013 Allergy to seafood; Z88.2 Allergy status to sulfonamides; Z79.899 Other long term (current) drug therapy; Z79.01 Long term (current) use of anticoagulants; Z86.73 Personal history of transient ischemic attack (TIA), and cerebral infarction without residual deficits
CPT/HCPCS: 36415; 71045; 80053; 83880; 84484; 85025; 85379; 85610; 85730; 93005; 99285

== ENCOUNTER 2023-11-05 12:59 | Emergency (ER) | payer MEDICARE, MEDICAID ==
[2023-11-05] MEDS ORDERED: Sodium Chloride 0.9% 10 ML Syringe FLUSH PRN (13:11)
[2023-11-05 13:37] LABS: BASOPHILS PERCENT AUTO 0.7 % (0.2-1.5); EOSINOPHILS ABSOLUTE AUTO 0.1 x10-3/uL (0.0-0.8); EOSINOPHILS PERCENT AUTO 1.9 % (0.6-8.1); HEMATOCRIT 42.5 % (34.2-48.2); HEMOGLOBIN 13.8 g/dL (11.4-15.5); LYMPHOCYTES PERCENT AUTO 32.6 % (18.4-52.1); MEAN CORPUSCULAR HEMOGLOBIN 28.3 pg (23.9-33.9); MEAN CORPUSCULAR HGB CONC 32.6 g/dL (31.9-34.8); MEAN PLATELET VOLUME 8.1 fL (7.1-12.4); MONOCYTES ABSOLUTE AUTO 0.5 x10-3/uL (0.3-1.0); MONOCYTES PERCENT AUTO 8.3 % (4.4-15.7); NEUTROPHILS ABSOLUTE AUTO 3.4 x10-3/uL (1.5-6.3); NEUTROPHILS PERCENT AUTO 56.5 % (30.8-76.2); PLATELET COUNT,PLT 200 x10(3)uL (151-488); RED BLOOD CELL COUNT 4.88 x10(6)uL (3.60-5.20); RED CELL DISTRIBUTION WIDTH 15.7 % (12.3-16.5); WHITE BLOOD CELL COUNT,WBC 6.1 x10-3/uL (3.0-10.3)
[2023-11-05 13:43] LABS: BLOOD UREA NITROGEN,BUN 15 mg/dL (7-18); BUN/CREATININE RATIO 16.7 (9-20); CARBON DIOXIDE,CO2 32 mmol/L (21-32); CHLORIDE,CL 104 mmol/L (100-110); CREATININE 0.9 mg/dL (0.55-1.02); ESTIMATED GFR 61 mL/min (>60); GLUCOSE RANDOM 87 mg/dL (80-116); POTASSIUM,K 3.5 mmol/L (3.5-5.3); SODIUM,NA 145 mmol/L (135-145)
[2023-11-05 13:49] LABS: A/G RATIO 1.3; ALANINE AMINOTRANSFERASE,ALT 23 U/L (12-36); ALBUMIN 3.9 g/dL (2.9-4.5); ALKALINE PHOSPHATASE 108 IU/L (56-112); ASPARTATE AMNIOTRANSFERASE,AST 20 IU/L (5-25); BILIRUBIN TOTAL 0.6 mg/dL (0.1-1.3); MAGNESIUM 1.9 mg/dL (1.8-2.5); PROTEIN TOTAL,TP 6.8 g/dL (6.0-8.0)
[2023-11-05] MEDS: Isosorbide Mononitrate 30 MG Tab.ER PO ONE (13:55)
[2023-11-05] MEDS ORDERED: Naloxone 0.4 MG/ML SDV IVPUSH PRN (13:56)
[2023-11-05] MEDS: Sodium Chloride 0.9% 1,000 ML IV SCH (14:19)
[2023-11-05] MEDS: Morphine 2 MG/ML SYRINGE IVPUSH ONE (14:20)
[2023-11-05] MEDS: Ondansetron 4 MG/2 ML SDV IVPUSH ONE (14:22)
[2023-11-05] MEDS: Morphine 4 MG/ML VIAL IVPUSH ONE (15:36)
== END 2023-11-05 17:41 | disposition home or self-care (01) ==
LOC: FB.ED 12:59
DX: R07.9 Chest pain, unspecified (principal); R11.0 Nausea; I11.0 Hypertensive heart disease with heart failure; I50.9 Heart failure, unspecified; E78.00 Pure hypercholesterolemia, unspecified; K21.9 Gastro-esophageal reflux disease without esophagitis; E03.9 Hypothyroidism, unspecified; E66.9 Obesity, unspecified; Z79.890 Hormone replacement therapy; Z90.710 Acquired absence of both cervix and uterus; Z79.891 Long term (current) use of opiate analgesic; Z79.899 Other long term (current) drug therapy; Z91.013 Allergy to seafood; Z88.2 Allergy status to sulfonamides; Z88.1 Allergy status to other antibiotic agents; Z68.26 Body mass index [BMI] 26.0-26.9, adult
CPT/HCPCS: 36415; 80053; 83735; 84484; 85025; 93005; 96374; 96375; 96376; 99285-25; A9270-GY; J2270; J2405; J7030